=== PATIENT | female | born 1990 | race Caucasian/White ===

== ENCOUNTER 2020-12-29 02:05 | Emergency (ER) | payer OTHER ==
[2020-12-29] MEDS ORDERED: Sodium Chloride 0.9% 10 ML Syringe FLUSH PRN (02:29)
[2020-12-29] MEDS ORDERED: Sodium Chloride 0.9% 2.5 ML Syringe FLUSH PRN (02:29)
--- NOTE | 2020-12-29 02:34 | EDM.PDOC ---
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 She began to spot 7 days ago. 2 days ago she began to bleed almost as heavy as it. It got as heavy as appeared yesterday. At 7 PM last night it began to gush heavier than a. She got dizzy lightheaded and flushed when she stood up. She is also had positive tests and 2 ultrasounds the last of which was on 21 December. Both times a saw sac in the uterus without any heartbeat. She had 8 out of 10 cramps last night and if gotten better. The cramps are worse when she straightens up and stands. Ultrasound reports that her understanding what she was told and they are available at [place] and I have sent and asked for the reports as well as her hCG and blood type. She thinks her blood type is O+. Review of systems: As per history of present illness and below otherwise all systems reviewed and negative. Past medical history: As per history of present illness and as reviewed below otherwise noncontribu tory. Surgical history: As per history of present illness and as reviewed below otherwise noncontributory. Social history: No reported history of drug or alcohol abuse. Family history: As per history of present illness and as reviewed below otherwise noncontributory. Physical exam: Constitutional - well developed, well-nourished and in no acute distress HEENT - normocephalic, no evidence of trauma - external nose and mouth normal - no mass in neck and no JVD - mucosae moist EYES - full EOM, PERRL, no icterus - no evidence of inflammation, injection, or drainage Respiratory - no respiratory distress, equal bilateral expansion, lungs clear to auscultation and no abnormal lung sounds Cardiovascular - Regular Rhythm with S1 and S2 appreciated and no murmur, gallop or rub. GI - abdomen soft without distension or organomegaly -tenderness slightly in the suprapubic area Musculoskeletal no gross deformity of long bones or joints - no tenderness, swelling or edema Neurologic - Alert and oriented times four - CN II-XII grossly intact - motor sensory and coordination symmetrically normal Psychiatric - appropriate mood and affect with normal thought content Hematologic - No petechiae or purpura - mucosa appropriate color and sclera not pale - normal nail bed color and refill Integument - no rash or evidence of trauma - normal turgor Diagnostics: [] Therapeutics: [] Impression: [] Plan: [] Definitive disposition and diagnosis as appropriate pending reevaluation and review of above. - Related Data Allergies Allergy/AdvReac Type Severity Reaction Status Date / Time minocycline Allergy Hives Verified 12/29/20 02:21 Home Meds: Home Meds . 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 ED EXAM, GENERAL - Physical Exam Exam: See Below Free Text/Narrative:: The physical exam is in the HPI Course - Vital Signs Last Recorded V/S: Last Vital Signs Temp 36.4 C 12/29/20 02:21 Pulse 78 12/29/20 02:21 Resp 18 12/29/20 02:21 BP 143/88 H 12/29/20 02:21 Pulse Ox 97 12/29/20 02:21 - Orders/Labs/Meds Labs: Laboratory Tests 12/29/20 12/29/20 12/29/20 Range/Units 02:55 02:55 02:55 WBC 9.06 (4.0-11.0) K/uL RBC 4.16 L (4.30-5.90) M/uL Hgb 12.2 (12.0-16.0) g/dL Hct 35.2 L (36.0-46.0) % MCV 84.6 (80.0-98.0) fL MCH 29.3 (27.0-32.0) pg MCHC 34.7 (31.0-37.0) g/dL RDW Std Deviation 39.6 (28.0-62.0) fl RDW Coeff of Matt 13 (11.0-15.0) % Plt Count 166 (150-400) K/uL MPV 11.30 (7.40-12.00) fL Neut % (Auto) 59.3 (48.0-80.0) % Lymph % (Auto) 33.4 (16.0-40.0) % [place] % (Auto) 5.4 (0.0-15.0) % Eos % (Auto) 1.7 (0.0-7.0) % Baso % (Auto) 0.2 (0.0-1.5) % Neut # (Auto) 5.4 (1.4-5.7) K/uL Lymph # (Auto) 3.0 H (0.6-2.4) K/uL [place] # (Auto) 0.5 (0.0-0.8) K/uL Eos # (Auto) 0.2 (0.0-0.7) K/uL Baso # (Auto) 0.0 (0.0-0.1) K/uL Nucleated RBC % 0.0 /100WBC Nucleated RBCs # 0 K/uL Sodium 141 (136-145) mmol/L Potassium 3.9 (3.5-5.1) mmol/L Chloride 105 (98-107) mmol/L Carbon Dioxide 28.4 (21.0-32.0) mmol/L BUN 16 (7.0-18.0) mg/dL Creatinine 0.9 (0.6-1.0) mg/dL Est Cr Clr Drug Dosing 65.05 mL/min Estimated GFR (MDRD) > 60.0 ml/min Glucose 106 (74-106) mg/dL Calcium 8.9 (8.5-10.1) mg/dL HCG, Quant 1467.0 mIU/mL Blood Type O POSITIVE Meds: Medications Discontinued Medications Generic Name Dose Route Start Last Admin Trade Name Freq PRN Reason Stop Dose Admin Ondansetron HCl 4 mg 12/29/20 04:28 12/29/20 04:32 Ondansetron 4 Mg Tab.Dis PO 12/29/20 04:29 4 mg ONETIME ONE Administration Sodium Chloride 10 ml 12/29/20 02:29 Sodium Chloride 0.9% 10 Ml Syringe FLUSH ASDIRECTED PRN Keep Vein Open Sodium Chloride 2.5 ml 12/29/20 02:29 Sodium Chloride 0.9% 2.5 Ml Syringe FLUSH ASDIRECTED PRN Keep Vein Open Departure - Departure Time of Disposition: 04:57 Disposition: Home, Self-Care 01 Condition: Good Clinical Impression: Incomplete - Discharge Information Instructions: Incomplete Miscarriage Referrals: PCP,Not In Area [Primary Care Provider] - Forms: ED Department Discharge Additional Instructions: It appears you are in the process of having a miscarriage your blood type is O+ so nothing further need be done. Return if you have a fever or severe pain significant lightheadedness because of heavy bleeding [facility] [address] [place] [address] [facility] [address] [place] [address] The following information is given to patients seen in the emergency department who are being discharged to home. This information is to outline your options for follow-up care. We provide all patients seen in our emergency department with a follow-up referral. The need for follow-up, as well as the timing and circumstances, are variable depending upon the specifics of your emergency department visit. If you don't have a primary care physician on staff, we will provide you with a referral. We always advise you to contact your personal physician following an emergency department visit to inform them of the circumstance of the visit and for follow-up with them and/or the need for any referrals to a consulting specialist. The emergency department will also refer you to a specialist when appropriate. This referral assures that you have the opportunity for follow-up care with a specialist. All of these measure are taken in an effort to provide you with optimal care, which includes your follow-up. Under all circumstances we always encourage you to contact your private physician who remains a resource for coordinating your care. When calling for follow-up care, please make the office aware that this follow-up is from your recent emergency room visit. If for any reason you are refused follow-up, please contact the [facility] Emergency Department at and asked to speak to the emergency department charge nurse. Sepsis Event Note (ED) - Evaluation Sepsis Screening Result: No Definite Risk - Focused Exam Vital Signs: Vital Signs Temp Pulse Resp BP Pulse Ox 12/29/20 02:21 36.4 C 78 18 143/88 H 97
[2020-12-29 03:49] LABS: BLOOD UREA NITROGEN,BUN 16 mg/dL (7.0-18.0); CARBON DIOXIDE,CO2 28.4 mmol/L (21.0-32.0); CHLORIDE,CL 105 mmol/L (98-107); GLUCOSE RANDOM 106 mg/dL (74-106); POTASSIUM,K 3.9 mmol/L (3.5-5.1); SODIUM,NA 141 mmol/L (136-145)
[2020-12-29] MEDS ORDERED: Ondansetron 4 MG Tab.DIS PO ONE (04:28)
--- NOTE | 2020-12-29 04:56 | US ---
INDICATION: Vaginal bleeding TECHNIQUE: Ultrasound OB pelvis transvaginal. Real time carrillo scale imaging of the pelvis was performed. COMPARISON: None FINDINGS: Gestational Sac: There is an oblong fluid collection present within the endocervical canal measuring 3 x 1.5 cm. No pole or yolk sac is seen. Uterus: 10.3 x 5.7 x 7 cm. The visualized myometrium appears normal. The endometrium is thickened and difficult to visualize, measuring up to 12 mm. Pelvis: The right ovary is unremarkable in appearance. There is an isoechoic region with surrounding hyperemia present and the left ovary measuring 1.4 x 1 cm which may represent an acute corpus luteum. Blood flow seen in both ovaries. No adnexal masses are identified. No significant ascites noted. IMPRESSION: 1. There is an oblong fluid collection present within the endocervical canal. This may represent a blighted ovum with impending spontaneous . 2. Clinical and imaging follow-up is recommended. Dictated by Awais Soto MD @ 12/29/2020 4:54:05 AM Dictated by: Awais Soto MD @ 12/29/2020 04:54:11 (Electronically Signed)
== END 2020-12-29 05:17 | disposition home or self-care (01) ==
LOC: MW.ED 02:05
DX: O03.4 Incomplete spontaneous abortion without complication (principal); Z88.1 Allergy status to other antibiotic agents
CPT/HCPCS: 36415; 76813; 80048; 84702; 85025; 86900; 86901; 99284; A9270; 76816-26; 99283